=== PATIENT | female | born 1950 | race Caucasian/White ===

== ENCOUNTER 2022-04-12 07:50 | Observation (INO) | payer MEDICARE ==
[2022-04-07 15:32] LABS: BASOPHILS % (AUTO) 0.6 % (0-1); EOSINOPHILS # (AUTO) 0.1 X10'3 (0-0.9); EOSINOPHILS % (AUTO) 1.4 % (0-6); LYMPHOCYTES # (AUTO) 1.8 X10'3 (1.1-4.8); LYMPHOCYTES % (AUTO) 28.9 % (21-51); MEAN CORPUSCULAR HEMOGLOBIN 31.4 PG (27.0-31.0); MEAN CORPUSCULAR VOLUME 92.4 FL (78-98); MEAN PLATELET VOLUME 7.9 FL (7.4-10.4); MONOCYTES # (AUTO) 0.5 X10'3 (0-0.9); MONOCYTES % (AUTO) 7.7 % (2-12); NEUTROPHILS # (AUTO) 3.9 X10'3 (1.8-7.7); NEUTROPHILS % (AUTO) 61.4 % (42-75); PRE OP HEMATOCRIT 38.9 % (35.0-45.0); PRE OP HEMOGLOBIN 13.2 g/dL (12.0-16.0); PRE OP PLATELET COUNT 388 X10'3 (140-440); RED BLOOD COUNT 4.21 X10'6 (4.20-5.60); RED CELL DISTRIBUTION WIDTH 12.6 % (11.5-14.5)
[2022-04-07 15:33] LABS: CLARITY,URINE CLEAR (Clear); COLOR,URINE YELLOW (Yellow); GLUCOSE, URINE NEGATIVE (Neg); KETONES,URINE NEGATIVE (Neg); LEUKOCYTE ESTERASE ,URINE NEGATIVE (Neg); NITRITES, URINE NEGATIVE (Neg); OCCULT BLOOD,URINE NEGATIVE (Neg); PH,URINE 6.5 (4.8-8.0); PROTEIN,URINE NEGATIVE (Neg); UROBILINOGEN,URINE 0.2 E.U/dL (0.2-1.0)
[2022-04-07 15:42] LABS: UA COLLECTION TYPE NON-SPECIFIED
[2022-04-07 15:52] LABS: ALBUMIN 3.7 G/DL (3.4-5.0); ALBUMIN/GLOBULIN RATIO 0.9 (1.1-1.5); ALKALINE PHOSPHATASE 56 IU/L (46-116); BLOOD UREA NITROGEN 19 MG/DL (7-18); BUN/CREATININE RATIO 21.1 (6.6-38.0); CALCIUM 8.8 MG/DL (8.5-10.1); CHLORIDE 106 MMOL/L (99-107); PRE OP ALT 26 U/L (30-65); PRE OP ANION GAP 7 (8-16); PRE OP AST 15 U/L (10-37); PRE OP BILIRUB, TOTAL 0.4 MG/DL (0.0-1.0); PRE OP GLUCOSE 83 MG/DL (70-104); PRE OP POTASSIUM 3.7 MMOL/L (3.4-5.1); PRE OP SODIUM 143 MMOL/L (135-145); TOTAL CARBON DIOXIDE 29.8 MMOL/L (24-32); TOTAL PROTEIN 7.9 G/DL (6.4-8.2); eGFR 62 ML/MIN
[~2022-04-12] VITALS: Ht 162.6 cm; Wt 64.4 kg
[2022-04-12] VITALS (18 sets, daily range): BP systolic 125–167; BP diastolic 69–104
[~2022-04-12 07:50] MED LIST: ALEN70TA80 PO; BUPR-72 PO; LEVO125T8 PO; ceFOXitin 2GM-NS 100mL ADDvant 100 ML IV ONE; famotidine 20mg tablet PO ONE
[2022-04-12] MEDS: ringers solution, lacted 1,000 ML IV SCH ×4 (09:08→19:29)
[2022-04-12] MEDS ORDERED: clindamycin phosphate 40gm vag cream ONE (10:31)
[2022-04-12] MEDS ORDERED: BUPIVAcaine/PF 5 mg/ml 10ml ONE (10:32)
[2022-04-12] MEDS ORDERED: ceFAZolin 1000mg inj ONE ×2 (10:32)
[2022-04-12] MEDS ORDERED: sevoflurane 250ml liquid IH ONE (10:57)
[2022-04-12] MEDS ORDERED: fentaNYL /PF 50mcg/ml 5ml ampule ONE (11:02)
[2022-04-12] MEDS ORDERED: HYDROmorphone/PF 0.2 MG/ML SYRINGE IV PRN ×2 (11:20)
[2022-04-12] MEDS ORDERED: morphine 2 MG/ML inj. syringe IV PRN (11:20)
[2022-04-12] MEDS ORDERED: ondansetron/PF 4mg/2ml inj IV PRN ×2 (11:20→14:05)
[2022-04-12] MEDS ORDERED: ringers solution, lacted 1,000 ML IV SCH (11:20)
[2022-04-12] MEDS ORDERED: dexamethasone sod phosphate 4mg/ml inj. ONE (11:24)
[2022-04-12] MEDS ORDERED: LIDOcaine 2% (20mg/ml) 5ml vial ONE (11:24)
[2022-04-12] MEDS ORDERED: rocuronium 10mg/ml inj IV ONE (11:24)
[2022-04-12] MEDS ORDERED: propofol inj 20 ML IV ONE (11:24)
[2022-04-12] MEDS ORDERED: neostigmine methylsulfate 1 MG/ML 10ml vial ONE (11:24)
[2022-04-12] MEDS ORDERED: ondansetron/PF 4mg/2ml inj ONE (11:24)
[2022-04-12] MEDS ORDERED: glycopyrrolate 0.2mg/ml inj ONE (11:24)
[2022-04-12] MEDS ORDERED: fluoroscein sod 10% (100mg/ml) 5ml vial ONE (12:40)
[2022-04-12] MEDS ORDERED: acetaminophen 1,000mg/100ml IV 100 ML IV ONE (12:40)
[2022-04-12] MEDS ORDERED: naloxone 0.4 mg/ml inj IV PRN (14:05)
[2022-04-12] MEDS ORDERED: normal saline 500ML IV soln IV PRN (14:05)
[2022-04-12] MEDS ORDERED: ketorolac trometh. 30mg/ml inj. IV PRN (14:05)
[2022-04-12] MEDS ORDERED: temazepam 15mg capsule PO PRN (14:05)
[2022-04-12] MEDS ORDERED: oxyCODONE/APAP 5-325mg tablet PO PRN (14:05)
[2022-04-12] MEDS ORDERED: mag hydrox/Alum hydrox/simeth 30ml oral suspension PO PRN (14:05)
[2022-04-12] MEDS ORDERED: diphenhydrAMINE 50 mg/ml inj IV PRN (14:05)
--- NOTE | 2022-04-12 14:05 | NUR ---
Received from OR via , accompanied by Anesthesiologist and report given by Anesthesiolgist. PATIENT A&OX4, DENIES PAIN, V/S WNL, SCD ON , PIV 20G RUE, F/C DRAINING CLEAR YELLOW URINE.3 LAP SITES CDI WITH PERIPAD AND VAGINAL PACKING CDI WITH NO S/S OF COMPLCIATION
[2022-04-12] MEDS ORDERED: sugammadex 200mg/2ml injection IV ONE (14:14)
--- NOTE | 2022-04-12 14:37 | NUR ---
received report from renetta tello in recovery
--- NOTE | 2022-04-12 15:15 | NUR ---
PATIENT A&OX4, DENIES PAIN, V/S WNL, SCD ON , PIV 20G RUE, F/C DRAINING CLEAR YELLOW URINE.3 LAP SITES CDI WITH PERIPAD AND VAGINAL PACKING CDI WITH NO S/S OF COMPLCIATION. right eye is red and painfull. patient adviced not to touch or rub, cold compress over eye lid applied, dr canada notified and will see if maybe eye drop might be needed after he evaluates patient. patient take to [address] with all belongings and report given to rn who has taken over patient care. patient hooked up to monitors in room and call light in place.
[2022-04-12] MEDS: oxyCODONE/APAP 5-325mg tablet PO PRN ×2 (15:36→22:38)
[2022-04-12] MEDS ORDERED: neomycin/polymyxn B/dexameth ophth suspension 5ml RIGHTEYE SCH (16:45)
[2022-04-12] MEDS: tobramycin/dexamethasone ophthalmic suspension RIGHTEYE SCH (17:02)
--- NOTE | 2022-04-12 18:22 | NUR ---
gave report to renetta bell
[2022-04-12] MEDS: buPROPion SR 150mg tablet PO SCH (19:31)
[2022-04-12] MEDS: docusate sod 100mg capsule PO SCH (19:31)
[2022-04-12] MEDS: simethicone 80mg chew tab PO SCH (19:31)
[2022-04-13] MEDS: tobramycin/dexamethasone ophthalmic suspension RIGHTEYE SCH ×3 (00:50→14:23)
[2022-04-13 02:30] VITALS: BP 139/81
[2022-04-13] MEDS: oxyCODONE/APAP 5-325mg tablet PO PRN ×3 (02:38→14:23)
[2022-04-13] MEDS: ringers solution, lacted 1,000 ML IV SCH ×2 (02:44→10:11)
[2022-04-13 06:00] VITALS: BP 116/67
--- NOTE | 2022-04-13 06:05 | NUR ---
Problems reprioritized. Patient report given, questions answered & plan of care reviewed with YOSELYN JONES.
--- NOTE | 2022-04-13 07:05 | NUR ---
Patient in room [facility]. I have received report from Jennifer TOPETE and had the opportunity to ask questions and assume patient care.
[2022-04-13 07:07] LABS: BASOPHILS % (AUTO) 0.2 % (0-1); EOSINOPHILS % (AUTO) 0 % (0-6); HEMATOCRIT 34.2 % (35.0-45.0); HEMOGLOBIN 11.9 g/dl (12.0-16.0); LYMPHOCYTES # (AUTO) 1.6 X10'3 (1.1-4.8); LYMPHOCYTES % (AUTO) 14.7 % (21-51); MEAN CORPUSCULAR HEMOGLOBIN 32.3 PG (27.0-31.0); MEAN CORPUSCULAR HGB CONC 34.7 g/dL (33.0-36.5); MEAN CORPUSCULAR VOLUME 93.1 FL (78-98); MEAN PLATELET VOLUME 7.8 FL (7.4-10.4); MONOCYTES % (AUTO) 9.6 % (2-12); NEUTROPHILS % (AUTO) 75.5 % (42-75); PLATELET COUNT 305 X10'3 (140-440); RED BLOOD COUNT 3.68 X10'6 (4.20-5.60); RED CELL DISTRIBUTION WIDTH 12.9 % (11.5-14.5); WHITE BLOOD COUNT 10.6 X10'3 (4.5-11.0)
[2022-04-13 07:15] LABS: ALBUMIN 2.8 G/DL (3.4-5.0); ANION GAP 9 (8-16); BLOOD UREA NITROGEN 14 MG/DL (7-18); CALCIUM 8.2 MG/DL (8.5-10.1); CHLORIDE 106 MMOL/L (99-107); GLUCOSE 90 MG/DL (70-104); POTASSIUM 4.4 MMOL/L (3.5-5.1); SODIUM 142 MMOL/L (135-145); TOTAL CARBON DIOXIDE 27.5 MMOL/L (24-32); eGFR 54 ML/MIN
[2022-04-13] MEDS: buPROPion SR 150mg tablet PO SCH (07:49)
[2022-04-13] MEDS: simethicone 80mg chew tab PO SCH ×3 (07:49→14:03)
[2022-04-13] MEDS: docusate sod 100mg capsule PO SCH (07:49)
[2022-04-13] MEDS ORDERED: levoTHYROXINE 125mcg tablet PO SCH (08:00)
[2022-04-13 10:00] VITALS: BP 135/93
[2022-04-13] MEDS ORDERED: LIDOcaine 2% 10ml TOPICAL JELLY (Urojet) TP ONE (13:50)
--- NOTE | 2022-04-13 14:43 | NUR ---
Bladder scanned patient showed 503ML's in bladder. Sewell placed per MD orders.
--- NOTE | 2022-04-13 16:30 | NUR ---
Patients discharge instructions reviewed with patient and patient verbalized understanding. Patients IV dc'd cannula intact. Patients was given demonstration on how to care for walker catheter and patient also did a return demonstration. Patients was taken to vehicle where will be driving her home. Patient states she has all her belongings
== END 2022-04-13 15:16 | disposition home or self-care (01) ==
LOC: PAS 07:50 → ORTHO 4S 14:18
PROVIDERS: ADMIT Obstetrics & Gynecology; ATTEND Obstetrics & Gynecology
DX: N81.4 Uterovaginal prolapse, unspecified (principal); Z20.822 Contact with and (suspected) exposure to COVID-19; N39.3 Stress incontinence (female) (male); K46.9 Unspecified abdominal hernia without obstruction or gangrene; K21.9 Gastro-esophageal reflux disease without esophagitis; F41.8 Other specified anxiety disorders; M81.0 Age-related osteoporosis without current pathological fracture; Z85.828 Personal history of other malignant neoplasm of skin; Z79.899 Other long term (current) drug therapy
CPT/HCPCS: 36415; 51992; 58552; 80048; 80053; 81003; 82948; 85025; 86885; 86900; 86901; 96374; 96375; C1758; C1771; G0378; J0131; J0690; J0694; J1100; J1170; J1885; J2405; J2704; J2710; J3010; J3490; J7120; 88307; A4314; A4355; A4618; A6250; A6402; A7000

== ENCOUNTER 2023-12-14 21:50 | Emergency (ER) | payer MEDICARE ==
[~2023-12-14] VITALS: Ht 162.6 cm; Wt 65.0 kg
[~2023-12-14 21:50] MED LIST changes: -ceFOXitin 2GM-NS 100mL ADDvant 100 ML IV ONE; -famotidine 20mg tablet PO ONE
[2023-12-14] MEDS ORDERED: AMOX-117 PO (23:27)
[2023-12-14] MEDS: amox tr/potassium clavulanate 875/125mg TAB PO ONE (23:38)
[2023-12-14 23:44] VITALS: BP 160/78; PULSE 78; RESP 16; TEMP 99; O2SAT 99
== END 2023-12-14 23:45 | disposition home or self-care (01) ==
LOC: ER 21:51
DX: S59.911A Unspecified injury of right forearm, initial encounter (principal); Z88.8 Allergy status to other drugs, medicaments and biological substances; W55.01XA Bitten by cat, initial encounter; Y93.89 Activity, other specified; Y92.89 Other specified places as the place of occurrence of the external cause; Y99.8 Other external cause status
CPT/HCPCS: 99283

== ENCOUNTER 2023-12-15 12:18 | Observation (INO) | payer MEDICARE ==
[~2023-12-15] VITALS: Ht 162.6 cm; Wt 65.0 kg
[~2023-12-15 12:18] MED LIST changes: +AMOX-117 PO
[2023-12-15] MEDS: normal saline 1000ml 1,000 ML IV ONE (12:45)
[2023-12-15] MEDS: adenosine 3mg/ml 2ml vial IV ONE (12:46)
[2023-12-15 12:53] LABS: BASOPHILS % (AUTO) 0.3 % (0-1); EOSINOPHILS # (AUTO) 0.1 X10'3 (0-0.9); EOSINOPHILS % (AUTO) 1.1 % (0-6); HEMATOCRIT 41.4 % (35.0-45.0); HEMOGLOBIN 13.8 g/dl (12.0-16.0); LYMPHOCYTES # (AUTO) 2.8 X10'3 (1.1-4.8); LYMPHOCYTES % (AUTO) 32.5 % (21-51); MEAN CORPUSCULAR HEMOGLOBIN 31.3 PG (27.0-31.0); MEAN CORPUSCULAR HGB CONC 33.4 g/dL (33.0-36.5); MEAN CORPUSCULAR VOLUME 93.7 FL (78-98); MEAN PLATELET VOLUME 7.7 FL (7.4-10.4); MONOCYTES # (AUTO) 0.7 X10'3 (0-0.9); MONOCYTES % (AUTO) 8.2 % (2-12); NEUTROPHILS % (AUTO) 57.9 % (42-75); PLATELET COUNT 444 X10'3 (140-440); RED BLOOD COUNT 4.42 X10'6 (4.20-5.60); RED CELL DISTRIBUTION WIDTH 13.6 % (11.5-14.5); WHITE BLOOD COUNT 8.7 X10'3 (4.5-11.0)
[2023-12-15 13:18] LABS: ALANINE AMINOTRANSFERASE 24 U/L (12-78); ALBUMIN 3.6 G/DL (3.4-5.0); ALBUMIN/GLOBULIN RATIO 0.9 (1.1-1.5); ALKALINE PHOSPHATASE 47 IU/L (46-116); ANION GAP 9 (8-16); ASPARTATE AMINO TRANSFERASE 22 U/L (10-37); BILIRUBIN,TOTAL 0.4 MG/DL (0.1-1.0); BLOOD UREA NITROGEN 20 MG/DL (7-18); BUN/CREATININE RATIO 17.4 (10.0-20.0); CALCIUM 9.1 MG/DL (8.5-10.1); CHLORIDE 102 MMOL/L (99-107); CREATININE 1.15 MG/DL (0.40-0.90); GLUCOSE 147 MG/DL (70-104); POTASSIUM 4.2 MMOL/L (3.5-5.1); SODIUM 139 MMOL/L (135-145); TOTAL CARBON DIOXIDE 28.4 MMOL/L (24-32); TOTAL PROTEIN 7.7 G/DL (6.4-8.2); eCRCL 37 ML/MIN; eGFR 46 ML/MIN
[2023-12-15 13:50] LABS: MAGNESIUM 2.1 MG/DL (1.5-2.4); PRO BRAIN NATRIURETIC PEPTIDE 171 PG/ML (0-125)
[2023-12-15] MEDS ORDERED: mag hydrox/Alum hydrox/simeth 30ml oral suspension PO PRN (14:20)
[2023-12-15] MEDS ORDERED: acetaminophen 325mg tablet PO PRN ×2 (14:20)
[2023-12-15] MEDS ORDERED: morphine 2 MG/ML inj. syringe IV PRN ×2 (14:20)
[2023-12-15] MEDS ORDERED: ondansetron/PF 4mg/2ml inj IV PRN (14:20)
[2023-12-15] MEDS ORDERED: magnesium hydroxide 30ml (MOM) UD suspension PO PRN (14:20)
[2023-12-15] MEDS ORDERED: HYDROcodone/acetaminophen 5mg/325mg tablet PO PRN (14:20)
[2023-12-15 15:05] LABS: PRO BRAIN NATRIURETIC PEPTIDE 176 PG/ML (0-125)
[2023-12-15 15:23] LABS: BILIRUBIN,URINE NEGATIVE (Neg); CLARITY,URINE SLIGHTLY CLOUDY (Clear); COLOR,URINE YELLOW (Yellow); GLUCOSE, URINE NEGATIVE (Neg); KETONES,URINE NEGATIVE (Neg); LEUKOCYTE ESTERASE ,URINE MODERATE (Neg); NITRITES, URINE NEGATIVE (Neg); OCCULT BLOOD,URINE TRACE-INTACT (Neg); PROTEIN,URINE NEGATIVE (Neg); UROBILINOGEN,URINE 0.2 E.U/dL (0.2-1.0)
[2023-12-15 15:25] LABS: UA COLLECTION TYPE NON-SPECIFIED
[2023-12-15 15:28] LABS: SQUAMOUS EPITHELIAL CELL,UR FEW /LPF (FEW)
[2023-12-15 15:29] LABS: BACTERIA,URINE FEW /HPF (Neg); RBC,URINE 0-2 /HPF (0-2)
[2023-12-15] MEDS: aspirin 81mg tab.chew PO ONE (16:22)
[2023-12-15] MEDS: docusate sod 100mg capsule PO SCH (20:13)
[2023-12-15 22:45] VITALS: BP 131/90; PULSE 75; RESP 18; TEMP 97.7; O2SAT 96
[2023-12-16 03:00] VITALS: BP 140/75; PULSE 90; RESP 14; TEMP 97.9; O2SAT 100
[2023-12-16 06:00] VITALS: BP 133/74; PULSE 59; RESP 15; TEMP 98.4; O2SAT 96
[2023-12-16 07:51] LABS: BASOPHILS % (AUTO) 0.3 % (0-1); EOSINOPHILS # (AUTO) 0.1 X10'3 (0-0.9); EOSINOPHILS % (AUTO) 1.5 % (0-6); HEMATOCRIT 38.6 % (35.0-45.0); LYMPHOCYTES # (AUTO) 2.4 X10'3 (1.1-4.8); LYMPHOCYTES % (AUTO) 35.5 % (21-51); MEAN CORPUSCULAR HEMOGLOBIN 31.3 PG (27.0-31.0); MEAN CORPUSCULAR HGB CONC 33.7 g/dL (33.0-36.5); MEAN CORPUSCULAR VOLUME 92.9 FL (78-98); MEAN PLATELET VOLUME 7.6 FL (7.4-10.4); MONOCYTES # (AUTO) 0.6 X10'3 (0-0.9); MONOCYTES % (AUTO) 8.4 % (2-12); NEUTROPHILS # (AUTO) 3.6 X10'3 (1.8-7.7); NEUTROPHILS % (AUTO) 54.3 % (42-75); PLATELET COUNT 349 X10'3 (140-440); RED BLOOD COUNT 4.16 X10'6 (4.20-5.60); RED CELL DISTRIBUTION WIDTH 13.3 % (11.5-14.5); WHITE BLOOD COUNT 6.7 X10'3 (4.5-11.0)
[2023-12-16 08:09] LABS: ALBUMIN 3.2 G/DL (3.4-5.0); ANION GAP 8 (8-16); BLOOD UREA NITROGEN 18 MG/DL (7-18); BUN/CREATININE RATIO 17.5 (10.0-20.0); CALCIUM 8.5 MG/DL (8.5-10.1); CHLORIDE 110 MMOL/L (99-107); CHOL/HDL RATIO 3.6 (0.00-4.99); CHOLESTEROL 193 MG/DL (0-200); CREATININE 1.03 MG/DL (0.40-0.90); GLUCOSE 97 MG/DL (70-104); HDL CHOLESTEROL 53 MG/DL (35-60); LDL CHOLESTEROL 111 MG/DL (50-100); POTASSIUM 4.2 MMOL/L (3.5-5.1); SODIUM 144 MMOL/L (135-145); TOTAL CARBON DIOXIDE 26.3 MMOL/L (24-32); TRIGLYCERIDES 135 MG/DL (20-135); eCRCL 41 ML/MIN; eGFR 52 ML/MIN
[2023-12-16] MEDS: sotalol 80mg tablet PO SCH (09:27)
[2023-12-16 11:00] VITALS: BP 123/75; PULSE 55; RESP 16; TEMP 98.8; O2SAT 98
[2023-12-16] MEDS ORDERED: SOTA80TA73 PO (14:03)
[2023-12-16] MEDS ORDERED: AMOX-580 PO (14:22)
[2023-12-16] MEDS ORDERED: sotalol 80mg tablet PO SCH (20:00)
== END 2023-12-16 15:15 | disposition home or self-care (01) ==
LOC: ER 12:18 → ED HOLD 14:24 → PCU 3S 22:45
PROVIDERS: ADMIT Internal Medicine; ATTEND Internal Medicine
DX: I47.10 Supraventricular tachycardia, unspecified (principal); I21.A1 Myocardial infarction type 2; E03.9 Hypothyroidism, unspecified; F32.A Depression, unspecified; Z79.899 Other long term (current) drug therapy; Z90.710 Acquired absence of both cervix and uterus
CPT/HCPCS: 36415; 71045; 80048; 80053; 80061; 81001; 83735; 83880; 84443; 84484; 85025; 87081; 87088; 93005; 93306; 94760; 96361; 96374; 99291; G0378; J0153; J7030